=== PATIENT | female | born 1950 | race Caucasian/White ===

== ENCOUNTER 2017-11-20 15:59 | Emergency (ER) | payer MEDICARE, BC ==
[2017-11-20] MEDS: ONDANSETRON (ODT) 4 MG TAB ODT (18:43)
[2017-11-20] MEDS: HYDROCODONE/APAP (5/325) TAB PO ×2 (18:44→21:43)
== END 2017-11-20 21:51 | disposition home or self-care (01) ==
LOC: FTE 15:59
DX: S02.2XXA Fracture of nasal bones, initial encounter for closed fracture (principal); I10 Essential (primary) hypertension; W01.0XXA Fall on same level from slipping, tripping and stumbling without subsequent striking against object, initial encounter; Y92.9 Unspecified place or not applicable
CPT/HCPCS: 70450; 70486; 72125; 99285-25